=== PATIENT | male | born 1940 | race Two or more races ===

== ENCOUNTER 2018-06-11 12:16 | Emergency (ER) | payer MEDICARE, OTHER | END 2018-06-11 14:04 | disposition home or self-care (01) | LOC: FTE 12:16 | DX: S60.141A Contusion of right ring finger with damage to nail, initial encounter (principal); W23.0XXA Caught, crushed, jammed, or pinched between moving objects, initial encounter; Y92.9 Unspecified place or not applicable | CPT/HCPCS: 11740; 73140; 99283-25 ==